=== PATIENT | male | born 1965 | race African-American/Black ===

== ENCOUNTER 2025-01-28 19:52 | Emergency (ER) | payer MEDICARE, MEDICAID ==
[~2025-01-28] VITALS: Ht 190.5 cm; Wt 91.0 kg
[2025-01-28 21:00] LABS: BASOPHILS % 1.0 % (0.0-2.0); EOSINOPHILS % 1.1 % (0.0-5.0); HEMATOCRIT. 34.0 % (42.0-52.0); HEMOGLOBIN. 12.0 g/dL (14.0-18.0); LYMPHOCYTES % 20.2 % (20.0-50.0); MEAN PLATELET VOLUME 6.4 fl (7.4-10.4); MONOCYTES % 8.3 % (2.0-8.0); NEUTROPHILS % 69.4 % (40.0-76.0); PLATELET 899 x1000/uL (130-400); RED BLOOD CELL COUNT 2.78 mill/uL (4.7-6.1); RED CELL DISTRIBUTION WIDTH 15.5 % (11.6-14.6)
[2025-01-28] MEDS: HALOPERIDOL LACTATE 5MG/ML VIAL IM ONE (21:00)
[2025-01-28] MEDS: DIAZEPAM 5 MG/ML 2ML SYR IM ONE (21:00)
[2025-01-28] MEDS: DIPHENHYDRAMINE 50MG/ML VIAL IM ONE (21:00)
[2025-01-28 21:01] LABS: ADD RBC MORPHOLOGY YES
[2025-01-28 21:15] LABS: CREATININE 1.1 mg/dL (0.6-1.3); UREA NITROGEN BLOOD 18 mg/dL (9-23)
[2025-01-28 21:20] LABS: CLARITY URINE CLEAR (CLEAR); COLOR URINE YELLOW (YELLOW); GLUCOSE URINE NEGATIVE (NEGATIVE); KETONES URINE NEGATIVE (NEGATIVE); LEUKOCYTE ESTERASE URINE NEGATIVE (NEGATIVE); NITRITE URINE NEGATIVE (NEGATIVE); OCCULT BLOOD URINE NEGATIVE (NEGATIVE); PH URINE 6.0 (4.5-8.0); PROTEIN URINE NEGATIVE (NEGATIVE); SPECIFIC GRAVITY URINE 1.011 (1.005-1.030); UROBILINOGEN URINE 1.0 E.U./dL (0.2-1.0)
[2025-01-28 21:26] LABS: PLATELET ESTIMATE MARKEDLY INCREASED
[2025-01-28 21:31] LABS: *AMPHETAMINES SCREEN URINE NEGATIVE (NEGATIVE); *BARBITURATES SCREEN URINE NEGATIVE (NEGATIVE); *BENZODIAZEPINES SCREEN URINE NEGATIVE (NEGATIVE)
[2025-01-28 21:32] LABS: *COCAINE SCREEN URINE NEGATIVE (NEGATIVE); CANNABINOID URINE SCREEN NEGATIVE (NEGATIVE); ECSTASY MDMA SCREEN URINE NEGATIVE (NEGATIVE); METHADONE URINE SCREEN NEGATIVE (NEGATIVE); OPIATES URINE SCREEN NEGATIVE (NEGATIVE); PHENCYCLIDINE URINE SCREEN NEGATIVE (NEGATIVE)
[2025-01-28 22:45] VITALS: O2SAT 100
[2025-01-29 06:00] VITALS: TEMP 36.7
[2025-01-29 08:37] VITALS: BP 95/51; PULSE 73; RESP 17; O2SAT 98
== END 2025-01-29 08:56 ==
LOC: ER 19:52
DX: S60.512A Abrasion of left hand, initial encounter (principal); S60.511A Abrasion of right hand, initial encounter; R45.850 Homicidal ideations; F20.9 Schizophrenia, unspecified; I10 Essential (primary) hypertension; F41.9 Anxiety disorder, unspecified; J44.9 Chronic obstructive pulmonary disease, unspecified; Z20.822 Contact with and (suspected) exposure to COVID-19; Z79.899 Other long term (current) drug therapy; X58.XXXA Exposure to other specified factors, initial encounter; Y93.89 Activity, other specified; Y92.89 Other specified places as the place of occurrence of the external cause; Y99.8 Other external cause status
CPT/HCPCS: 80305; 80048; 81003; 80307; 80329; 80320; 85025; 36415; 96372; 99291; 87426; 93005; J1200; J1630; A4606; G0480